=== PATIENT | male | born 1995 | race Caucasian/White ===

== ENCOUNTER 2017-02-12 08:09 | Emergency (ER) | payer OTHER ==
[2017-02-12 09:25] VITALS: BP 138/80
--- NOTE | 2017-02-13 04:34 | ECGEPIP ---
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
== END 2017-02-12 10:57 | disposition home or self-care (01) ==
LOC: EDBD 08:09 → M ED 08:09
DX: R55 Syncope and collapse (principal)

== ENCOUNTER 2019-02-01 10:58 | Day surgery (SDC) | payer OTHER ==
[~2019-02-01] VITALS: Ht 160 cm; Wt 59.0 kg
[2019-02-01] MEDS ORDERED: NS 1,000 ML IV ONE (11:30)
[2019-02-01 12:02] LABS: BASO % 0.3 % (0.0-1.0); EOS # 0.1 10^3/uL (0.0-0.5); EOS % 0.8 % (0.0-3.0); HEMATOCRIT 46.9 % (42.0-52.0); HEMOGLOBIN 15.6 g/dl (13.5-17.5); LYMPH # 1.8 10^3/uL (1.5-5.0); LYMPH % 19.8 % (24.0-44.0); MEAN CORPUSCULAR HEMOGLOBIN 30.1 pg (27.0-33.0); MEAN CORPUSCULAR HGB CONC 33.3 g/dl (32.0-36.5); MEAN CORPUSCULAR VOLUME 90.5 fl (80.0-96.0); MONO # 0.7 10^3/uL (0.0-0.8); MONO % 7.2 % (0.0-5.0); NEUTROPHILS # 6.5 10^3/uL (1.5-8.5); NEUTROPHILS % 71.4 % (36.0-66.0); PLATELET COUNT, AUTOMATED 310 10^3/uL (150-450); RED BLOOD COUNT 5.18 10^6/uL (4.30-6.10); WHITE BLOOD COUNT 9.1 10^3/uL (4.0-10.0)
[2019-02-01 12:22] LABS: ALT/SGPT 25 U/L (12-78); BILIRUBIN,DIRECT 0.1 MG/DL (0.0-0.2); BILIRUBIN,TOTAL 0.8 MG/DL (0.2-1.0); BLOOD UREA NITROGEN 14 MG/DL (7-18); CALCIUM LEVEL 9.5 MG/DL (8.5-10.1); CARBON DIOXIDE LEVEL 30 MEQ/L (21-32); CHLORIDE LEVEL 103 MEQ/L (98-107); GLOMERULAR FILTRATION RATE > 60.0 (>60); GLUCOSE, FASTING 85 MG/DL (70-100); LIPASE 73 U/L (73-393); POTASSIUM SERUM 4.1 MEQ/L (3.5-5.1); SODIUM LEVEL 138 MEQ/L (136-145); TOTAL PROTEIN 8.2 GM/DL (6.4-8.2)
[2019-02-01] MEDS ORDERED: ISOVUE-370 76% 100ML VIAL (Q9967) As Ordered ONE (12:25)
--- NOTE | 2019-02-01 12:51 | REP ---
Clinical: Right lower quadrant pain. Technique: Axial contrast enhanced images from the lung bases to the pubic symphysis using 100 ml Isovue 370 intravenous contrast material with coronal and sagittal re-formations. Findings: Inflammatory changes surrounding a dilated appendix measuring 12 mm diameter (images [id number]). Small amount of associated free fluid extends into the deep pelvis. No evidence for bowel obstruction, perforation, or drainable collection/abscess. Remainder of the enteric system is unremarkable. Liver, spleen, pancreas, gallbladder, bilateral adrenal glands and kidneys are normal. Pelvis demonstrates normal bladder and age appropriate prostate/seminal vesicles. Abdominal aorta and vasculature normal. Musculoskeletal structures are intact. Lung bases are clear. Impression: Acute appendicitis. Electronically Signed by Niall Lester MD 02/01/2019 12:43 P
[2019-02-01] MEDS ORDERED: PIPERACILLIN/TAZOBACTAM SOD 3.375 GM in D5W MINI-BAG PLUS 50 ML IV ONE (13:00)
[2019-02-01] MEDS ORDERED: KETOROLAC 30 MG/ML VIAL (J1885) IV PRN (15:00)
[2019-02-01] MEDS ORDERED: ONDANSETRON 4 MG TAB (S0181) PO PRN (15:00)
[2019-02-01] MEDS ORDERED: MORPHINE 2 MG/ML 1ML VIAL (J2270) IV PRN (15:00)
[2019-02-01] MEDS: LR 1,000 ML IV SCH (15:11)
[2019-02-01] MEDS ORDERED: KETOROLAC 30 MG/ML VIAL (J1885) As Ordered ONE (15:14)
[2019-02-01 16:42] VITALS: BP 110/73
[2019-02-01] MEDS ORDERED: BUPIVACAINE HCL 0.25% 30 ML VIAL As Ordered ONE (18:54)
[2019-02-01] MEDS ORDERED: PROPOFOL 200 MG/20 ML VIAL As Ordered ONE (18:56)
[2019-02-01] MEDS ORDERED: fentaNYL 100 MCG/2 ML INJECTION (J3010) As Ordered ONE ×2 (18:56→19:18)
[2019-02-01] MEDS ORDERED: MIDAZOLAM INJ 2 MG/2 ML VIAL (J2250) As Ordered ONE (18:56)
[2019-02-01] MEDS ORDERED: ROCURONIUM BROMIDE 50 MG/5 ML VIAL As Ordered ONE (18:57)
[2019-02-01] MEDS ORDERED: dexameTHASONE 4 MG/ML 1ML VIAL (J1100) As Ordered ONE (18:57)
[2019-02-01] MEDS ORDERED: LIDOCAINE 2% INJ 100 MG/5 ML SDV (FOR ANES.) As Ordered ONE (18:57)
[2019-02-01] MEDS ORDERED: ONDANSETRON 4MG/2ML VIAL (J2405) As Ordered ONE (18:57)
[2019-02-01] MEDS ORDERED: PIPERACILLIN/TAZOBACTAM SOD 3.375 GM in D5W MINI-BAG PLUS 50 ML IV SCH (19:00)
[2019-02-01] MEDS ORDERED: ACETAMINOPHEN 1000MG 100ML IV BTL (OFIRMEV) (J0131 PER 10MG) As Ordered ONE (19:32)
[2019-02-01] MEDS ORDERED: KETOROLAC 60 MG/2 ML VIAL (J1885) As Ordered ONE (19:35)
[2019-02-01] MEDS ORDERED: SUGAMMADEX SODIUM 500 MG/5 ML VIAL (BRIDION) As Ordered ONE (19:35)
[2019-02-01] MEDS ORDERED: PERCOCET 5MG/325MG TAB PO PRN (20:45)
[2019-02-01] MEDS ORDERED: HYDROMORPHONE HCL 0.5 MG/ 0.5 ML SYRINGE (J1170 PER 1) IV PRN (20:45)
[2019-02-01] MEDS ORDERED: ACETAMINOPHEN TAB 650MG DOSE (2X325MG) PO PRN (20:45)
[2019-02-01] MEDS ORDERED: fentaNYL 100 MCG/2 ML INJECTION (J3010) IV PRN (20:45)
[2019-02-01] MEDS ORDERED: LR 1,000 ML IV SCH (20:45)
[2019-02-01] MEDS ORDERED: ONDANSETRON 4MG/2ML VIAL (J2405) IV PRN (20:45)
[2019-02-01] MEDS ORDERED: PERCOCET 5MG/325MG TAB As Ordered ONE (21:03)
[2019-02-01 21:15] VITALS: BP 152/75
[2019-02-01 21:45] VITALS: BP 115/78
--- NOTE | 2019-02-01 22:08 | RO ---
DATE OF PROCEDURE: 02/01/2019 PREOPERATIVE DIAGNOSIS: Acute appendicitis. POSTOPERATIVE DIAGNOSIS: Acute appendicitis. PROCEDURE PERFORMED: Laparoscopic appendectomy. SURGEON: Dr. John Butcher HASH SLINGER: ANESTHESIA: General. INDICATIONS FOR THE PROCEDURE: The patient is a 23-year-old man who presented to the emergency department with a 2 to 3 day history of abdominal pain. This has become more localized to the right lower quadrant. He had marked tenderness in the right lower quadrant, and a CT scan showed inflammatory changes of the appendix consistent with acute appendicitis. He is now for laparoscopic appendectomy. DESCRIPTION OF PROCEDURE: The patient was brought to the operating room and placed on the table in a supine position. The patient was placed under general endotracheal anesthesia. The patient's abdomen was prepped and draped in a sterile fashion. 0.25% Marcaine was infiltrated at each of the trocar sites. A short supraumbilical midline incision was made and deepened through the subcutaneous tissues to the fascia. The fascia was opened along the midline and the peritoneum was opened bluntly. A Latasha cannula was inserted, and the abdomen was insufflated with carbon dioxide gas. The laparoscope was placed. Initial examination showed a normal appearing liver. Visualized portions of the stomach and small and large bowel appeared normal. There was a mass of omentum in the right lower quadrant in the suspected area of the inflamed appendix. Two 5 mm trocars were placed in the left lower quadrant. The patient was tilted to a Trendelenburg position. Graspers were inserted. The omentum was peeled away from an underlying inflamed appendix. Appendix had not perforated but was clearly quite inflamed with some exudate. The attachments of the appendix to the retroperitoneum were divided. The mesoappendix was then divided using the hook cautery. The vascular bundle was identified and this was thoroughly cauterized before division. The appendix was freed down to its base. The junction of the appendix with the cecum was stapled using a linear cutter 45 stapler with a blue load. The appendix was placed in an Endopouch. A couple of small bleeding points along the staple line were cauterized. The area was irrigated and inspection showed no evidence of any residual bleeding. The patient was returned to a flat position. The abdomen was deflated and the trocars were removed. The appendix was recovered through the supraumbilical site. The peritoneum at the site was closed with a #2-0 Vicryl suture. The fascia was closed with interrupted simple sutures of #2-0 Vicryl. The skin incisions were all closed with buried #4-0 Vicryl and Steri-Strips. The patient tolerated the procedure well without apparent complication. He was awakened in the operating room, extubated and moved to the recovery room in stable condition.
[2019-02-01 22:45] VITALS: BP 121/79
[2019-02-01 23:45] VITALS: BP 118/76
[2019-02-02 00:45] VITALS: BP 117/59
[2019-02-02] MEDS: LR 1,000 ML IV SCH (00:50)
[2019-02-02] MEDS: IBUPROFEN 600 MG TAB PO PRN ×3 (01:31→15:04)
[2019-02-02 01:45] VITALS: BP 105/56
[2019-02-02] MEDS: NORCO, ANEXSIA 5/325MG TABLET (HYDROcodone/ACETAMINOPHEN) PO PRN ×2 (05:41→12:39)
[2019-02-02 06:00] VITALS: BP 108/62
[2019-02-02 08:00] VITALS: BP 127/74
[2019-02-02 12:00] VITALS: BP 130/68
[2019-02-02 16:00] VITALS: BP 140/64
[2019-02-02] MEDS ORDERED: HYDR-4571 PO (17:03)
--- NOTE | 2019-02-02 18:30 | IPN ---
DATE: 02/02/2019 HISTORY: The patient is postop day #1 from a laparoscopic appendectomy for acute appendicitis. He has done well overnight. He is on a regular diet and is voiding without difficulty. He denies any nausea or vomiting. He is passing flatus. He has taken two Ridott and some Advil since surgery. VITAL SIGNS: Shows that he has been afebrile with a pulse in the 70s and a normal blood pressure and room air oxygen saturation. Intake and output shows that he has had an excellent oral intake as well as an excellent urine output. PHYSICAL EXAMINATION: Patient is lying quietly in the hospital bed. He moves as if he has little discomfort. Heart exam shows a regular slow rhythm. The lungs are clear. The abdomen is flat. His dressings are clean and dry. He has active bowel sounds and the abdomen is without any undue tenderness. IMPRESSION: The patient is doing very well 1 day postop from his laparoscopic appendectomy. PLAN: He will be discharged home tonight. 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 He can take a diet as tolerated. 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 I will plan on seeing him back in the office in 7-10 days for a postop visit. If there are any problems he was counseled to call the office. JASON
== END 2019-02-02 18:00 | disposition home or self-care (01) ==
LOC: M ED 10:58 → M SDC 10:59 → M PED 16:32 → M SDC 02-02 18:00
PROVIDERS: ATTEND Surgery
DX: K35.30 Acute appendicitis with localized peritonitis, without perforation or gangrene (principal); F17.210 Nicotine dependence, cigarettes, uncomplicated
CPT/HCPCS: 44970; 74177; 80048; 80076; 83690; 85025; 88304; 96361; 96365; 96375; 99284; J0131; J1100; J1885; J2250; J2405; J2543; J3010; Q9967